=== PATIENT | male | born 1955 | race Caucasian/White ===

== ENCOUNTER 2016-11-13 16:15 | Emergency (ER) | payer BC ==
[2016-11-13 16:40] VITALS: BP 146/86
[2016-11-13] MEDS ORDERED: Acetaminophen TAB* 325 MG PO ONE (17:06)
--- NOTE | 2016-11-13 17:10 | UC ---
FLU HPI - HPI Summary HPI Summary: complaint of cough and runny nose for the last 2 days fever today, fatigued,feels achy all over sore throat when he coughs it hurts his chest denies shortness of breath denies N/V/D at this time took some OTC cold and flu medication without relief - History of Current Complaint Chief Complaint: UCRespiratory Stated Complaint: COUGH,CONGESTION,SORE THROAT Time Seen by Provider: 11/13/16 16:56 - Allergy/Home Medications Allergies/Adverse Reactions: Allergies Allergy/AdvReac Type Severity Reaction Status Date / Time Ibuprofen [From Motrin] AdvReac upset Verified 11/13/16 16:34 stomach PMH/Surg Hx/FS Hx/Imm Hx Previously Healthy: Yes Endocrine History Of: Reports: Diabetes Denies: Thyroid Disease Cardiovascular History Of: Reports: Hypertension Denies: Cardiac Disorders, Pacemaker/ICD Respiratory History Of: Denies: Asthma GI/ History Of: Reports: Renal Disease - Surgical History Surgical History: Yes Surgery Procedure, Year, and Place: APPENDIX. LEFT KNEE SURGERY. FACIAL AND BACK SKIN CA - BASAL CELL REMOVAL - Family History Known Family History: Positive: Hypertension, Diabetes Negative: Cardiac Disease - Social History Occupation: Disabled Lives: With Family Alcohol Use: None Substance Use Type: None Smoking Status (MU): Former Smoker Type: Cigarettes Amount Used/How Often: 1/2 PPD Length of Time of Smoking/Using Tobacco: 42 Years Have You Smoked in the Last Year: Yes When Did the Patient Quit Smoking/Using Tobacco: 1 month ago Household Exposure Type: Cigarettes - Immunization History Most Recent Influenza Vaccination: 10/2016 Most Recent Tetanus Shot: 02/16/14 Review of Systems Constitutional: Fever Skin: Negative Eyes: Negative ENT: Negative Respiratory: Cough Cardiovascular: Negative Gastrointestinal: Negative Genitourinary: Negative Motor: Negative Neurovascular: Negative Musculoskeletal: Negative Neurological: Negative Psychological: Negative All Other Systems Reviewed And Are Negative: Yes Physical Exam Triage Information Reviewed: Yes Appearance: No Pain Distress Vital Signs: Initial Vital Signs Temp 102 F 11/13/16 16:35 Pulse 130 11/13/16 16:35 Resp 22 11/13/16 16:35 BP 146/86 11/13/16 16:35 Pulse Ox 97 11/13/16 16:35 Vital Signs Reviewed: Yes Eyes: Positive: Conjunctiva Clear ENT: Positive: Pharyngeal erythema, Nasal congestion, TMs normal Neck: Positive: No Lymphadenopathy Respiratory: Positive: Lungs clear, Normal breath sounds, No respiratory distress, No accessory muscle use Cardiovascular: Positive: No Murmur, Pulses Normal, Tachycardia Abdomen Description: Positive: Nontender, Soft Bowel Sounds: Positive: Present Musculoskeletal: Positive: No Edema Neurological: Positive: Alert Psychological Exam: Normal Skin Exam: Normal Flu Course/Dx - Course Course Of Treatment: influenza. pt able to drink fluids and eat without difficulty. will start tamiflu and acetaminophen for pain fever. if no improvement will followup with PCP - Differential Dx/Diagnosis Differential Diagnosis/HQI/PQRI: Influenza Provider Diagnoses: influenza Discharge - Discharge Plan Condition: Stable Disposition: HOME Prescriptions: Oseltamivir CAP* [Tamiflu CAP*] 75 mg PO BID #10 cap Patient Education Materials: Influenza (ED) Referrals: Paxton Alejo MD [Primary Care Provider] - Additional Instructions: Please take tamiflu as directed. Increase fluids and rest Take acetaminophen for fever or pain Please review your discharge instructions. . If your symptoms do not improve please call your primary care provider or return to urgent care
== END 2016-11-13 17:21 | disposition home or self-care (01) ==
LOC: UCCORT 16:15
DX: J11.1 Influenza due to unidentified influenza virus with other respiratory manifestations (principal); Z85.828 Personal history of other malignant neoplasm of skin; Z87.891 Personal history of nicotine dependence; Z88.6 Allergy status to analgesic agent
CPT/HCPCS: 87502; 99212; A9270-GY; G0463

== ENCOUNTER 2016-12-20 13:26 | Emergency (ER) | payer BC ==
[2016-12-20 13:43] VITALS: BP 138/84
--- NOTE | 2016-12-20 14:46 | ED ---
GI/ HPI - HPI Summary HPI Summary: Pt here w/ ongoing urge and frequency to urinate as well as dysuria and incontinence if he doesn't get to the toilet in time since TURP on Dec 10 for BPH. He reports the frequency and burning are new since TURP. Denies fever, chills, N/V/D, ab pain, flank pain, scrotal pain, anal pain and no change in bowel habits. After speaking w/ pt and nurse from [facility] in [place], pt was seen at [facility] on 12/12/2016 and dx'd w/ significant over reactive bladder - rx'd ditropan. U/A was neg for infection - no anbx rx'd per nurse, but pt states he took cipro for a few days - no change in sx. Pt returned to [facility] ED on 12/17/2016 for ongoing sx - no growth on cx from previous U/A collection on 12/12/2016. Labs were checked and w/o cause for concern. Pt was d/c'd w/ increased dose ditropan 15mg, advised to drink plenty of fluids and f/u on 12/25. Pt was seen by a physician on this day, Dr. Jahaira Stanley. Pt reports his f/u has been changed to 01/01. [facility] reports pt has a non-[facility] rx in his chart for flomax as well. Pt states he is not taking this at present. Pt also voices concern about going back to work tomorrow as he's not able to control his urine flow well at this time. - History of Current Complaint Chief Complaint: EDUrogenitalProblems Time Seen by Provider: 12/20/16 14:26 Stated Complaint: UNABLE TO URIRATE Hx Obtained From: Patient, Family/Supervisor Polishing - Pain Intensity: 0 - Allergy/Home Medications Allergies/Adverse Reactions: Allergies Allergy/AdvReac Type Severity Reaction Status Date / Time Ibuprofen [From Motrin] AdvReac upset Verified 12/20/16 13:36 stomach PMH/Surg Hx/FS Hx/Imm Hx Previously Healthy: Yes Endocrine/Hematology History: Reports: Hx Diabetes Denies: Hx Anticoagulant Therapy, Hx Blood Disorders, Hx Thyroid Disease Cardiovascular History: Reports: Hx Hypertension Denies: Hx Pacemaker/ICD Respiratory History: Denies: Hx Asthma History: Reports: Hx Benign Prostatic Hyperplasia - TURP 12/10/2016, Hx Renal Disease Sensory History: Denies: Hx Hearing Aid Psychiatric History: Denies: Hx Panic Disorder - Cancer History Cancer Type, Location and Year: skin - Surgical History Surgery Procedure, Year, and Place: APPENDIX. LEFT KNEE SURGERY. FACIAL AND BACK SKIN CA - BASAL CELL REMOVAL Infectious Disease History: No Infectious Disease History: Denies: Hx of Known/Suspected MRSA, Traveled Outside the [place] in Last 30 Days - Family History Known Family History: Positive: Hypertension, Diabetes Negative: Cardiac Disease - Social History Occupation: Employed Full-time Lives: With Family Alcohol Use: None Hx Substance Use: No Substance Use Type: Reports: None Smoking Status (MU): Former Smoker Type: Cigarettes Amount Used/How Often: 1/2 PPD Length of Time of Smoking/Using Tobacco: 42 Years Have You Smoked in the Last Year: Yes Review of Systems Negative: Fever, Chills, Fatigue Cardiovascular: Negative Negative: Palpitations, Chest Pain Respiratory: Negative Negative: Shortness Of Breath, Cough Gastrointestinal: Negative Negative: Abdominal Pain, Vomiting, Diarrhea, Nausea Positive: see HPI Musculoskeletal: Negative Negative: Arthralgia, Myalgia Skin: Negative Negative: Rash, Bruising Neurological: Negative Negative: Headache, Weakness, Paresthesia, Numbness Psychological: Normal All Other Systems Reviewed And Are Negative: Yes Physical Exam Triage Information Reviewed: Yes Vital Signs On Initial Exam: Initial Vitals Temp Pulse Resp BP Pulse Ox 98.6 F 101 18 138/84 98 12/20/16 13:36 12/20/16 13:36 12/20/16 13:36 12/20/16 13:36 12/20/16 13:36 Vital Signs Reviewed: Yes Appearance: Positive: Well-Appearing, No Pain Distress, Well-Nourished Skin: Positive: Warm, Dry - no rash observed Head/Face: Positive: Normal Head/Face Inspection Eyes: Positive: Normal, EOMI, Conjunctiva Clear ENT: Positive: Hearing grossly normal, Pharynx normal - muocosa moist Neck: Positive: Supple Respiratory/Lung Sounds: Positive: Clear to Auscultation, Breath Sounds Present Cardiovascular: Positive: Normal, RRR Abdomen Description: Positive: Nontender, No Organomegaly, Soft. Negative: CVA Tenderness (R), CVA Tenderness (L) Bowel Sounds: Positive: Present Male Genital Exam: Positive: other - penile shaft and urethra appear to be healthy hwoever scrotal sac is enlarged - pt and state this is normal for him - NTTP. Negative: bleeding, erythema, scrotum tenderness (R), scrotum tenderness (L), urethral discharge Musculoskeletal: Positive: Normal, Strength/ROM Intact Neurological: Positive: Normal, Sensory/Motor Intact, Alert, Oriented to Person Place, Time, CN Intact II-III Psychiatric: Positive: Normal Diagnostics - Vital Signs Vital Signs Temp Pulse Resp BP Pulse Ox 12/20/16 13:36 98.6 F 101 18 138/84 98 - Laboratory Lab Statement: Any lab studies that have been ordered have been reviewed, and results considered in the medical decision making process. GIGU Course/Dx - Course Course Of Treatment: After discussing course of sx, w/u and tx w/ thispt s/p TURP, advised continued use of ditropan, avoid diuretics and flomax and f/u w/ urology as directed (he will call for sooner appt). Also discussed work options - pt may try using a protective undergarment but if this inteferes w/ work, may stay out of work until cleared again by urology. Offered pt a course of different anbx in the event that the WBC's in his urine are bacterial in nature. He prefers to wait for cx and sens to return as he already had a course of cipro w/o relief and no growth on urine c&s from 12/12. Reviewed danger s/sx of when to return to ED. Pt and voice understanding. - Diagnoses Provider Diagnoses: overactive bladder, S/P TURP - Physician Notifications Discussed Care Of Patient With: Dr. Flores Discharge - Discharge Plan Condition: Stable Disposition: HOME Patient Education Materials: Overactive Bladder (GEN) Forms: *Work Release Referrals: Paxton Alejo MD [Primary Care Provider] - Additional Instructions: Your urinalysis is consistent with your previous urinalysis on 12/12/2016. You have opted to refrain from antibiotics at his time. If your urine culture reveals bacteria, we will call you to start an antibiotic. In the meantime it is encouraged that you avoid diuretics such as lemon water, lemonade, cranberry juice, caffeine (ie. coffee, tea, iced tea, soda), and alcohol (ie. wine, beer, liquor). Keep your appointment with your urologist. *If your symptoms worsen in the meantime, fever, chills, vomiting, flank pain, abdominal pain, fecal incontinence, chest pain, difficulty breathing, return to ED
[2016-12-20 15:27] LABS: Urine Bacteria Absent (Absent); Urine Bilirubin Negative (Negative); Urine Glucose Negative (Negative); Urine Nitrite Negative (Negative)
== END 2016-12-20 16:19 | disposition home or self-care (01) ==
LOC: ED 13:26
DX: N40.1 Benign prostatic hyperplasia with lower urinary tract symptoms (principal); R39.15 Urgency of urination; E11.9 Type 2 diabetes mellitus without complications; I10 Essential (primary) hypertension; J45.909 Unspecified asthma, uncomplicated; Z87.891 Personal history of nicotine dependence; R30.0 Dysuria
CPT/HCPCS: 81003; 81015; 87086; 99282

== ENCOUNTER 2018-07-08 19:42 | Emergency (ER) | payer OTHER ==
[2018-07-08 20:36] VITALS: BP 113/81
--- NOTE | 2018-07-08 21:38 | UC ---
Abdominal Pain Male HPI - HPI Summary HPI Summary: Decreased stool passage since 07/03, at which time he used milk of mag and passed a small amount of liquid stool. Since then, he has tried an enema with no passage, and using typical foods to trigger stools has not been successful ( coffee, green salads). He has used no further softeners. Has had a colonoscopy ? within 5 years. NO vomiting, appetite has been normal and he has continued to eat. No past hx of constipation. - History of Current Complaint Chief Complaint: UCGI Stated Complaint: ABDOMINAL PAIN, CONSTIPATION Time Seen by Provider: 07/08/18 21:28 Hx Obtained From: Patient Onset/Duration: Gradual Onset, Lasting Days - 6 Severity Initially: Mild Severity Currently: Moderate Pain Intensity: 8 Location: Diffuse Radiates: No Character: Colicy, Cramping Aggravating Factor(s): Food Alleviating Factor(s): Nothing - Allergies/Home Medications Allergies/Adverse Reactions: Allergies Allergy/AdvReac Type Severity Reaction Status Date / Time ibuprofen [From Motrin] AdvReac GI Upset Verified 07/08/18 20:27 PMH/Surg Hx/FS Hx/Imm Hx Endocrine History: Diabetes Cardiovascular History: Hypertension Other GI/ History: overactive bladder--receiving treatments from urology Other History Of: Negative For: Anticoagulant Therapy - Surgical History Surgical History: Yes Surgery Procedure, Year, and Place: APPENDIX. LEFT KNEE SURGERY. FACIAL AND BACK SKIN CA - BASAL CELL REMOVAL - Family History Known Family History: Positive: Hypertension, Diabetes Negative: Cardiac Disease - Social History Occupation: Employed Part-time Lives: With Family Alcohol Use: None Substance Use Type: None Smoking Status (MU): Current Every Day Smoker Type: Cigarettes Amount Used/How Often: 1/2 PPD Length of Time of Smoking/Using Tobacco: 42 Years Have You Smoked in the Last Year: Yes When Did the Patient Quit Smoking/Using Tobacco: 1 month ago Household Exposure Type: Cigarettes - Immunization History Most Recent Influenza Vaccination: 10/2016 Most Recent Tetanus Shot: 02/16/14 Review of Systems Constitutional: Fatigue Skin: Negative Eyes: Negative ENT: Negative Respiratory: Negative Cardiovascular: Negative Gastrointestinal: Abdominal Pain Genitourinary: Negative Motor: Negative Neurovascular: Negative Musculoskeletal: Negative Neurological: Negative Psychological: Negative Is Patient Immunocompromised?: No All Other Systems Reviewed And Are Negative: Yes Physical Exam Triage Information Reviewed: Yes Appearance: Ill-Appearing, Pain Distress - uncomfortable, but does not look acutely ill Vital Signs: Initial Vital Signs Temp 98.5 F 07/08/18 20:30 Pulse 114 07/08/18 20:30 Resp 20 07/08/18 20:30 BP 113/81 07/08/18 20:30 Pulse Ox 99 07/08/18 20:30 ENT Exam: Normal Neck: Positive: Supple, Nontender, No Lymphadenopathy Respiratory: Positive: Lungs clear, Normal breath sounds Cardiovascular: Positive: RRR, No Murmur Abdomen Description: Positive: Soft, Distended, Guarding - voluntary guarding, diffusely tender, Other: - rectal: scant stool in rectum, nothing to disimpact. Bowel Sounds: Positive: Present - all 4 quadrants. Musculoskeletal Exam: Normal Neurological Exam: Normal Psychological Exam: Normal Skin Exam: Normal Diagnostics - Laboratory Diagnostic Studies Completed/Ordered: flat plate of the abdomen shows ++ stool, no air fluid levels, gas present per read. Abd Pain Male Course/Dx - Course Course Of Treatment: begin miralax gently, aware to go to ER if begins vomiting. - Differential Dx/Clinical Impression Provider Diagnoses: severe constipation. Discharge - Sign-Out/Discharge Documenting (check all that apply): Patient Departure All imaging exams completed and their final reports reviewed: No - Discharge Plan Condition: Stable Disposition: HOME Patient Education Materials: Constipation (ED) Referrals: Lucila Jesus PA [Primary Care Provider] - Additional Instructions: For treatment of constipation: You can begin with 2 x 5 mg capsules of Dulcolax (bisacodyl). One hour following that, you can begin use of Miralax (propylene glycol), taking 2 capsules in 24 ounces of water and sipping over 1/2 hour. Continue clear fluids. The above dose can be repeated in 6 hours. If you begin to vomit or have pain of increasing severity, you MUST go to the emergency room for assessment. - Billing Disposition and Condition Condition: STABLE Disposition: Home
--- NOTE | 2018-07-09 08:00 | RAD ---
INDICATION: No stool passage for 5 days evaluate for obstruction. COMPARISON: There are no relevant prior studies available for comparison. TECHNIQUE: Frontal supine films of the abdomen were obtained. FINDINGS: The small bowel and colon appear nondistended. There is a moderate amount retained stool present. No significant abnormal calcifications are seen. IMPRESSION: NO EVIDENCE FOR OBSTRUCTION. R0
--- NOTE | 2018-07-09 12:03 | UC ---
- Progress Note Progress Note: Patient Name: MAYRA DALE Medical Record#: [id number] Ordering Physician: Gilda Myers MD Acct.#: [id number] : 1955 Age: 62 Sex: M Location: [facility] Exam Date: 07/08/182147 ADM Status: [facility] ER Order Information: ABDOMEN/KUB 1 VW Accession Number: [id number] CPT: 03504 INDICATION: No stool passage for 5 days evaluate for obstruction. COMPARISON: There are no relevant prior studies available for comparison. TECHNIQUE: Frontal supine films of the abdomen were obtained. FINDINGS: The small bowel and colon appear nondistended. There is a moderate amount retained stool present. No significant abnormal calcifications are seen. IMPRESSION: NO EVIDENCE FOR OBSTRUCTION. R0 <Electronically signed by Guillermo Meyer MD in OV> 07/09/18755 Dictated By: Guillermo Meyer MD Dictated Date/Time: 07/09/18755 Transcribed Date/Time: 07/09/18754 Copy to: CC:Lucila KIDD; Gilda Myers MD Imaging - [facility] Imaging - [facility] Urgent [facility] [address] [address] ph ([phone]) ph ([phone]) ph ([phone]) This report is only to be considered final once signed by the Provider(s) as displayed in the "<Electronically Signed by >" field (s). Absence of a signature indicates the report is in a draft status and still needs to be finalized. In the event this document was created by someone other than the signing Provider, the individual initiating the document will be listed in the "Entered by:" or "Dictated by:" mitchell. 1 of 1 Discharge - Sign-Out/Discharge Documenting (check all that apply): Post-Discharge Follow Up All imaging exams completed and their final reports reviewed: Yes - Discharge Plan Condition: Stable Disposition: HOME Patient Education Materials: Constipation (ED) Referrals: Lucila Jesus PA [Primary Care Provider] - Additional Instructions: For treatment of constipation: You can begin with 2 x 5 mg capsules of Dulcolax (bisacodyl). One hour following that, you can begin use of Miralax (propylene glycol), taking 2 capsules in 24 ounces of water and sipping over 1/2 hour. Continue clear fluids. The above dose can be repeated in 6 hours. If you begin to vomit or have pain of increasing severity, you MUST go to the emergency room for assessment. - Billing Disposition and Condition Condition: STABLE Disposition: Home
== END 2018-07-08 22:28 | disposition home or self-care (01) ==
LOC: UCCORT 19:42
DX: K59.00 Constipation, unspecified (principal); Z88.4 Allergy status to anesthetic agent
CPT/HCPCS: 74018; 99211; G0463

== ENCOUNTER 2018-12-16 15:07 | Emergency (ER) | payer OTHER ==
[2018-12-16 15:28] VITALS: BP 146/81
--- NOTE | 2018-12-16 15:55 | UC ---
Neck Pain HPI - HPI Summary HPI Summary: 63 yo male with the acute onset of right lateral neck pain that occurred last night while at work. The neck pain lasted about 30 minutes. He states that during that episode he had some mild tingling of the right side of his face but no facial weakness. He had a very mild right temporal headache. He states that this has occurred 2 times in the past read he denies any chest pain or shortness of breath. He states that he has a long standing history of problems with increased frequency of urination. He states that he gets up every hour during the night to urinate. He has a long standing history of being fatigued and sleepy due to this problem. He states that no med's have helped. He is currently receiving acupuncture for this. - History of Current Complaint Chief Complaint: UCGeneralIllness Stated Complaint: DIABETES TYPE 2-DIZZY,NUMBNESS Time Seen by Provider: 12/16/18 15:36 Hx Obtained From: Patient Onset/Duration Of Injury/Symptoms: Minutes Mechanism Of Injury: No Known Trauma Timing: Constant Onset/Duration: Sudden Onset, Lasting Minutes - 30 Severity: Moderate Pain Intensity: 0 - no pain at present Pain Scale Used: 0-10 Numeric Location: Diffuse - right lateral Character: Burning Aggravating Factors: Nothing Alleviating Factors: Nothing Associated Signs & Symptoms: Positive: Negative - Allergies/Home Medications Allergies/Adverse Reactions: Allergies Allergy/AdvReac Type Severity Reaction Status Date / Time ibuprofen [From Motrin] AdvReac GI Upset Verified 12/16/18 15:14 Home Medications: Home Medications Docusate Sodium [Colace] 100 mg PO BEDTIME 12/16/18 [History Confirmed 12/16/18] Lisinopril 40 mg PO DAILY 12/16/18 [History Confirmed 12/16/18] Venlafaxine TAB (NF) [Effexor TAB (NF)] 25 mg PO DAILY 12/16/18 [History Confirmed 12/16/18] PMH/Surg Hx/FS Hx/Imm Hx Previously Healthy: Yes Endocrine History: Diabetes Cardiovascular History: Hypertension Other History Of: Negative For: Anticoagulant Therapy - Surgical History Surgical History: Yes Surgery Procedure, Year, and Place: APPENDIX. LEFT KNEE SURGERY. FACIAL AND BACK SKIN CA - BASAL CELL REMOVAL - Family History Known Family History: Positive: Hypertension, Diabetes Negative: Cardiac Disease - Social History Alcohol Use: None Substance Use Type: None Smoking Status (MU): Current Every Day Smoker Type: Cigarettes Amount Used/How Often: 1 PPD Length of Time of Smoking/Using Tobacco: 42 Years Have You Smoked in the Last Year: Yes When Did the Patient Quit Smoking/Using Tobacco: 1 month ago Household Exposure Type: Cigarettes - Immunization History Most Recent Influenza Vaccination: 10/2016 Most Recent Tetanus Shot: 02/16/14 Review of Systems All Other Systems Reviewed And Are Negative: Yes Constitutional: Positive: Fatigue Skin: Positive: Negative Eyes: Positive: Negative ENT: Positive: Negative Respiratory: Positive: Negative Cardiovascular: Positive: Negative Genitourinary: Positive: Frequency Motor: Positive: Negative Neurovascular: Positive: Negative Musculoskeletal: Positive: Negative Neurological: Positive: Negative Psychological: Positive: Negative Physical Exam Triage Information Reviewed: Yes Appearance: Well-Appearing, No Pain Distress, Well-Nourished Vital Signs: Initial Vital Signs Temp 98.1 F 12/16/18 15:17 Pulse 97 12/16/18 15:17 Resp 20 12/16/18 15:17 BP 146/81 12/16/18 15:17 Pulse Ox 100 12/16/18 15:17 Vital Signs Reviewed: Yes Eyes: Positive: Conjunctiva Clear ENT: Positive: Hearing grossly normal. Negative: Nasal congestion, Nasal drainage, Tonsillar swelling, Tonsillar exudate, Trismus, Muffled voice, Hoarse voice, Sinus tenderness Neck: Negative: Supple - decreased ROM Respiratory: Positive: Lungs clear, Normal breath sounds, No respiratory distress, No accessory muscle use Cardiovascular: Positive: RRR, No Murmur Musculoskeletal: Positive: ROM Intact, No Edema Neurological: Positive: Alert, Other: - cn2-12 intact, strength 5/5, DTRs symmetrical, normal gait Psychological Exam: Normal Skin Exam: Normal Diagnostics - EKG Cardiac Rate: NL Cardiac Rhythm: Sinus: Normal Ectopy: None ST Segment: Normal Neck Pain Course/Dx - Course Course Of Treatment: Blood sugar 102. I informed patient that I was unsure of the cause of his symptoms. Possiblities include TIA, CAD, cervical radiculopathy, and others. I suggested he go to the ER for further evaluation. He states he will do so if symptoms recur. At present he wants to go to the [place] in [place] tomorrow. - Differential Dx/Diagnosis Provider Diagnosis: Neck pain on right side Discharge - Sign-Out/Discharge Documenting (check all that apply): Patient Departure All imaging exams completed and their final reports reviewed: No Studies - Discharge Plan Condition: Stable Disposition: HOME Forms: *Work Release Referrals: Lucila Jesus PA [Primary Care Provider] - Additional Instructions: I am unsure of the cause of your right sided neck pain If symptoms recur I suggest you go straight to the ER [facility] Your symptoms need further investigation Your EKG and blood sugar were normal - Billing Disposition and Condition Condition: STABLE Disposition: Home
== END 2018-12-16 16:05 | disposition home or self-care (01) ==
LOC: UCCORT 15:07
DX: M54.2 Cervicalgia (principal); R51 Headache; R35.0 Frequency of micturition; R53.83 Other fatigue; E11.9 Type 2 diabetes mellitus without complications; F17.210 Nicotine dependence, cigarettes, uncomplicated; I10 Essential (primary) hypertension; Z79.4 Long term (current) use of insulin
CPT/HCPCS: 93005; 99211; G0463